=== PATIENT | male | born 1975 | race Caucasian/White ===

== ENCOUNTER 2022-05-11 18:51 | Emergency (ER) | payer BC, SELFPAY ==
[2022-05-11 19:01] VITALS: BP 160/87; PULSE 80; RESP 18; TEMP 36.8; O2SAT 99
--- NOTE | 2022-05-11 19:10 | ED.DENTAL ---
HPI - Dental/Oral General Chief complaint: Dental/Oral Stated complaint: Mouth Pain Lt Side Time Seen by Provider: 05/11/22 19:07 Source: patient Mode of arrival: ambulatory Limitations: no limitations History of Present Illness HPI Narrative: Patient presents today complaining of swelling and pain to the left lower gumline around the most posterior tooth x2 days, worse today. Believes he may have ?popped? something along the gumline. currently rates his pain 8/10 and has been using Orajel. Denies shortness of breath or difficulty swallowing. He has not seen a dentist in several years. He has not been to a doctor in approximately 20 years. Related Data Allergies Allergy/AdvReac Type Severity Reaction Status Date / Time No Known Allergies Allergy Verified 05/11/22 19:07 Review of Systems Review of Systems: CONSTITUTIONAL: Denies body aches, fever, chills, or sweats. EYES: Denies visual changes, redness, or discharge. ENT: Denies rhinorrhea, congestion, sore throat, or otalgia.+ gum pain and swelling CARDIOVASCULAR: Denies chest pain, palpitations, or edema. RESPIRATORY: Denies cough or dyspnea. GASTROINTESTINAL: Denies abdominal pain, nausea, vomiting, or diarrhea. GENITOURINARY: Denies dysuria or hematuria. SKIN: Denies rash, itching, or wounds. MUSCULOSKELETAL: Denies back pain, joint pain, or myalgia. NEUROLOGIC: Denies headache, numbness, tingling, or weakness. PSYCH: Denies depression or anxiety. PMFSH Comments At time of signature, I have reviewed and agree with nursing past medical, surgical, social and family history unless otherwise noted. Please see nursing chart for further information. There is no relevant family history pertinent to the presenting complaint Exam Narrative: GENERAL: Well-appearing, well-nourished, and in no acute distress. HEAD: Normocephalic, atraumatic. EYES: EOMI. No redness or drainage. Conjunctivae normal. ENT: Mucous membranes pink and moist. Throat normal. Uvula midline. Moderate swelling surrounding tooth 18. That is tender to palpation. No obvious periapical abscess noted. Dentition grossly normal. NECK: Normal AROM. Supple. No lymphadenopathy. CHEST: No respiratory distress. EXTREMITIES: Normal range of motion. No edema. SKIN: Warm, dry, no rash. Capillary refill normal. Normal skin turgor. NEURO: No focal deficits. Alert and oriented x3. Gait steady. PSYCH: Normal affect. No signs of depression or anxiety. Course Course Level of Care: Express Care Visit Vital Signs Vital signs: Vital Signs Temperature 98.3 F 05/11/22 19:01 Pulse Rate 80 05/11/22 19:01 Respiratory Rate 18 05/11/22 19:01 Blood Pressure 160/87 H 05/11/22 19:01 Pulse Oximetry 99 05/11/22 19:01 Oxygen Delivery Room Air 05/11/22 19:01 Temperature 98.3 F 05/11/22 19:01 Pulse Rate 80 05/11/22 19:01 Respiratory Rate 18 05/11/22 19:01 Blood Pressure 160/87 H 05/11/22 19:01 Pulse Oximetry 99 05/11/22 19:01 Oxygen Delivery Room Air 05/11/22 19:01 Reviewed. Pt has been instructed to follow up with his PCP regarding his elevated blood pressure today. MDM - Dental/Oral MDM Narrative Medical decision making narrative: Patient likely has an abscess forming. Prescription for amoxicillin sent to pharmacy. Urged patient to follow-up with dentistry as soon as possible. Anticipatory guidance given. Differential Diagnosis Differential diagnosis: Likely gingival abscess, dental caries, toothache, dental abscess and fracture of tooth Critical Care Time Critical Care Time Critical Care Time: No Discharge Plan Discharge Clinical Impression: Dental abscess Patient Disposition: Home, Self-Care Condition: Stable Instructions: Antibiotic Form, Dental Abscess (ED) Additional Instructions: Please take the amoxicillin as prescribed until gone. Taking anti-inflammatories such as Aleve or ibuprofen to help with the swelling and pain. Follow-up with a dentis
== END 2022-05-11 19:15 | disposition home or self-care (01) ==
PROVIDERS: Emergency Provider Nurse Practitioner
DX: K04.7 Periapical abscess without sinus (principal)
CPT/HCPCS: 99203; G0463